=== PATIENT | male | born 1950 | race Two or more races ===

== ENCOUNTER → 2019-07-15 | Outpatient (CLI) | payer MEDICARE ==
--- NOTE | 2019-07-15 10:41 | Diagnostic Imaging Report ---
TECHNIQUE: Magnetic resonance imaging of the RIGHT SHOULDER was performed WITHOUT injected contrast. COMPARISON: None available. HISTORY: Right shoulder pain FINDINGS: MUSCLES AND TENDONS: Rotator Cuff: Tendons: Partial-thickness articular and bursal surface tearing of the supraspinatus tendon for example coronal image 12. Muscles: No focal muscle atrophy. Biceps Tendon: The long head of the biceps tendon is intact and within the intertubercular groove. GLENOHUMERAL JOINT: Glenoid Labrum: Superior labral tearing. Articular Cartilage: No focal defect. AC JOINT AND ACROMION: Moderate hypertrophic degenerative changes of the acromioclavicular joint. Downsloping acromion. BONE: No focal or infiltrative bone marrow replacing abnormality. No acute fracture. SOFT TISSUES: Fluid within the subacromial subdeltoid bursa. IMPRESSION: Supraspinatus partial-thickness bursal and articular sided tearing. No atrophy. Downsloping acromion with subacromial spurring and subacromial/subdeltoid bursal fluid/bursitis. Signed by: Dr. Cory Cristina M.D. on 07/15/2019 10:37 AM
== END ==
LOC: MRI 09:29
PROVIDERS: ATTEND Specialist
DX: S46.091D Other injury of muscle(s) and tendon(s) of the rotator cuff of right shoulder, subsequent encounter (principal)